=== PATIENT | female | born 1990 | race Caucasian/White ===

== ENCOUNTER 2018-05-19 10:10 | Inpatient (IN) | payer BC ==
[2018-05-19] MEDS ORDERED: LIDOCAINE 1% (MPF) 30 ML INJ INJ (10:30)
[2018-05-19] MEDS ORDERED: CARBOPROST 250 MCG INJ IM ×2 (10:30→23:30)
[2018-05-19] MEDS ORDERED: METHYLERGONOVINE 0.2 MG INJ IM ×2 (10:30→23:30)
[2018-05-19] MEDS ORDERED: AMPICILLIN 2 GM/NS (PMX) 100 ML IV (10:30)
[2018-05-19] MEDS ORDERED: OXYTOCIN 30 UNITS/LR 500 ML IV ×2 (10:30→23:30)
[2018-05-19] MEDS ORDERED: IBUPROFEN 600 MG TAB PO (10:30)
[2018-05-19] MEDS ORDERED: BUTORPHANOL 2 MG INJ IV (10:30)
[2018-05-19] MEDS ORDERED: MISOPROSTOL 200 MCG TAB PR ×2 (10:30→23:30)
[2018-05-19] MEDS ORDERED: BUTORPHANOL 1 MG INJ IV (10:30)
[2018-05-19] MEDS: LACTATED RINGER'S 1,000 ML IV ×4 (11:11→18:32)
[2018-05-19 11:16] LABS: ADD MAN DIFF? NO
[2018-05-19 11:19] LABS: BASOPHIL # 0.1 10^3/ul (0.0-0.1); BASOPHILS % 0.5 % (0.0-2.0); EOSINOPHILS # 0.1 10^3/ul (0.0-0.5); EOSINOPHILS % 0.5 % (0.0-7.0); HEMATOCRIT 34.1 % (37.0-47.0); HEMOGLOBIN 11.5 g/dl (12.0-16.0); LYMPHOCYTES # 1.4 10^3/ul (0.8-2.9); LYMPHOCYTES % 13.1 % (15.0-51.0); MEAN CORPUSCULAR HEMOGLOBIN 30.7 pg (29.0-33.0); MEAN CORPUSCULAR HGB CONC 33.7 g/dl (32.0-37.0); MEAN CORPUSCULAR VOLUME 90.9 fl (82.0-101.0); MEAN PLATELET VOLUME 11.3 fl (7.4-10.4); MONOCYTE # 0.9 10^3/ul (0.3-0.9); MONOCYTES % 8.8 % (0.0-11.0); NEUTROPHILS % 76.3 % (39.0-77.0); PLATELET COUNT 197 10^3/UL (140-415); RED BLOOD COUNT 3.75 10^6/ul (4.20-5.40); RED CELL DISTRIBUTION WIDTH 12.6 % (11.5-14.5)
[2018-05-19 11:19] LABS: WHITE BLOOD COUNT 10.5 10^3/ul (4.8-10.8)
[2018-05-19 11:39] LABS: INR 0.86; PARTIAL THROMBOPLASTIN TIME 24.5 Sec (23.0-35.0); PROTIME 11.8 Sec (11.9-14.9); PT RATIO 0.9
[2018-05-19 12:27] LABS: HEPATITIS B SURFACE ANTIGEN NEGATIVE (NEGATIVE)
[2018-05-19] MEDS: SALINE 0.65% 45 ML NAS SPRAY NASAL (12:52)
[2018-05-19 13:41] LABS: HIV 1&2 ANTIBODY NEGATIVE (NEGATIVE)
[2018-05-19] MEDS ORDERED: DIPHENHYDRAMINE 50 MG INJ IV (14:30)
[2018-05-19] MEDS ORDERED: NALOXONE (0.4 MG/ML) INJ IV (14:30)
[2018-05-19] MEDS ORDERED: AMPICILLIN 1 GM/NS (PMX) 50 ML IV (14:30)
[2018-05-19] MEDS ORDERED: ONDANSETRON 4 MG INJ IV (14:30)
[2018-05-19 15:17] LABS: RAPID PLASMA REAGIN NONREACTIVE (NR)
[2018-05-19] MEDS ORDERED: MINERAL OIL LIGHT 10 ML VIAL (16:36)
[2018-05-19] MEDS ORDERED: MINERAL OIL LIGHT 10 ML VIAL TOP (17:00)
[2018-05-19] MEDS: FENTAnyl 2MCG/ML-ROPIV 0.2% 100 ML BAG EPI (20:18)
[2018-05-19] MEDS: ACETAMINOPHEN 500 MG TAB PO (22:03)
[2018-05-19] MEDS ORDERED: GENTAMICIN 120 MG/NS (PMX) 100 ML IVPB (22:12)
[2018-05-19] MEDS: GENTAMICIN 120 MG/NS (PMX) 100 ML IVPB (22:15)
[2018-05-19] MEDS: CLINDAMYCIN 900 MG/D5W (PMX) 50 ML IVPB (23:34)
[2018-05-19] MEDS ORDERED: OXYTOCIN 10 UNIT INJ (23:57)
[2018-05-19] MEDS ORDERED: morphine SULFATE/PF (10 MG/10 ML) INJ (23:57)
[2018-05-20] MEDS ORDERED: OXYTOCIN 10 UNIT INJ (00:02)
[2018-05-20] MEDS ORDERED: METHYLERGONOVINE 0.2 MG INJ IM (01:00)
[2018-05-20] MEDS ORDERED: MISOPROSTOL 200 MCG TAB PR (01:00)
[2018-05-20] MEDS ORDERED: ONDANSETRON 4 MG INJ IV ×2 (01:00→15:30)
[2018-05-20] MEDS ORDERED: NALOXONE (0.4 MG/ML) INJ IV (01:00)
[2018-05-20] MEDS ORDERED: morphine 4 MG/ML VIAL IV (01:00)
[2018-05-20] MEDS ORDERED: LANOLIN HPA 1 PKT TOP (01:00)
[2018-05-20] MEDS ORDERED: DIPHENHYDRAMINE 50 MG INJ IV (01:00)
[2018-05-20] MEDS ORDERED: NACL 0.9% 3 ML SYG IV (01:00)
[2018-05-20] MEDS ORDERED: CARBOPROST 250 MCG INJ IM (01:00)
[2018-05-20] MEDS ORDERED: OXYTOCIN 30 UNITS/LR 500 ML IV (01:00)
[2018-05-20] MEDS: GENTAMICIN 90 MG in SOD CHLORIDE 0.9% 100 ML IV ×3 (02:23→17:58)
[2018-05-20] MEDS: OXYTOCIN 30 UNITS/LR 500 ML IV ×4 (02:48→15:14)
[2018-05-20] MEDS: KETOROLAC 30 MG INJ IV ×2 (02:52→17:16)
[2018-05-20] MEDS: AMPICILLIN 2 GM/NS (PMX) 100 ML IV ×4 (05:53→23:57)
[2018-05-20] MEDS: CLINDAMYCIN 900 MG/D5W (PMX) 50 ML IVPB (05:54)
[2018-05-20] MEDS ORDERED: LIDOCAINE 1.5%/EPI MPF (SDV) 30 ML VIAL (07:00)
[2018-05-20] MEDS ORDERED: OXYTOCIN 30 UNITS/LR 500 ML BAG IV (07:00)
[2018-05-20] MEDS: SENNA/DOCUSATE NA (8.6MG/50MG) TAB PO ×2 (08:25→21:00)
[2018-05-20] MEDS: LACTATED RINGER'S 1,000 ML IV (10:13)
[2018-05-20] MEDS ORDERED: VITAMIN A & D 5 GM OINT PACKET TOP (21:53)
[2018-05-21] MEDS: GENTAMICIN 90 MG in SOD CHLORIDE 0.9% 100 ML IV (01:00)
[2018-05-21] MEDS ORDERED: IBUPROFEN 600 MG TAB (01:05)
[2018-05-21] MEDS: IBUPROFEN 600 MG TAB PO ×4 (01:05→17:31)
[2018-05-21] MEDS: OXYTOCIN 30 UNITS/LR 500 ML IV (01:14)
[2018-05-21] MEDS: AMPICILLIN 2 GM/NS (PMX) 100 ML IV (05:54)
[2018-05-21 08:30] LABS: ADD MAN DIFF? NO
[2018-05-21 08:42] LABS: BASOPHIL # 0.1 10^3/ul (0.0-0.1); BASOPHILS % 0.3 % (0.0-2.0); EOSINOPHILS % 0.2 % (0.0-7.0); HEMATOCRIT 28.5 % (37.0-47.0); HEMOGLOBIN 9.3 g/dl (12.0-16.0); LYMPHOCYTES # 1.3 10^3/ul (0.8-2.9); LYMPHOCYTES % 7.7 % (15.0-51.0); MEAN CORPUSCULAR HEMOGLOBIN 30.7 pg (29.0-33.0); MEAN CORPUSCULAR HGB CONC 32.6 g/dl (32.0-37.0); MEAN CORPUSCULAR VOLUME 94.1 fl (82.0-101.0); MEAN PLATELET VOLUME 11.1 fl (7.4-10.4); MONOCYTE # 1.5 10^3/ul (0.3-0.9); MONOCYTES % 8.6 % (0.0-11.0); NEUTROPHIL # 14.2 10^3/ul (1.6-7.5); NEUTROPHILS % 82.2 % (39.0-77.0); PLATELET COUNT 179 10^3/UL (140-415); RED BLOOD COUNT 3.03 10^6/ul (4.20-5.40); RED CELL DISTRIBUTION WIDTH 13.1 % (11.5-14.5)
[2018-05-21 08:42] LABS: WHITE BLOOD COUNT 17.2 10^3/ul (4.8-10.8)
[2018-05-21] MEDS: SENNA/DOCUSATE NA (8.6MG/50MG) TAB PO ×2 (09:00→20:35)
[2018-05-21 09:02] LABS: ANION GAP 4 (5-13); BLOOD UREA NITROGEN 9 mg/dl (7-20); CALCIUM 9.1 mg/dl (8.4-10.2); CARBON DIOXIDE 28 mmol/L (21-31); CHLORIDE 104 mmol/L (97-110); CREATININE 0.69 mg/dl (0.44-1.00); Estimated GFR > 60 mL/min (>60); GLUCOSE 98 mg/dl (70-220); POTASSIUM 4.3 mmol/L (3.5-5.1); SODIUM 136 mmol/L (135-144)
[2018-05-21] MEDS: FERROUS GLUCONATE (EC) 325 MG TAB PO (20:35)
[2018-05-22] MEDS: IBUPROFEN 600 MG TAB PO ×4 (00:15→17:27)
[2018-05-22 07:23] LABS: ADD MAN DIFF? NO
[2018-05-22 07:33] LABS: BASOPHIL # 0.1 10^3/ul (0.0-0.1); BASOPHILS % 0.5 % (0.0-2.0); EOSINOPHILS # 0.1 10^3/ul (0.0-0.5); EOSINOPHILS % 1.1 % (0.0-7.0); HEMATOCRIT 27.6 % (37.0-47.0); HEMOGLOBIN 9.1 g/dl (12.0-16.0); LYMPHOCYTES % 15.8 % (15.0-51.0); MEAN CORPUSCULAR HEMOGLOBIN 31.1 pg (29.0-33.0); MEAN CORPUSCULAR VOLUME 94.2 fl (82.0-101.0); MONOCYTES % 8.1 % (0.0-11.0); NEUTROPHIL # 9.4 10^3/ul (1.6-7.5); NEUTROPHILS % 73.7 % (39.0-77.0); PLATELET COUNT 204 10^3/UL (140-415); RED BLOOD COUNT 2.93 10^6/ul (4.20-5.40); RED CELL DISTRIBUTION WIDTH 12.8 % (11.5-14.5)
[2018-05-22 07:33] LABS: WHITE BLOOD COUNT 12.8 10^3/ul (4.8-10.8)
[2018-05-22] MEDS: SENNA/DOCUSATE NA (8.6MG/50MG) TAB PO ×2 (08:59→21:58)
[2018-05-22] MEDS: FERROUS GLUCONATE (EC) 325 MG TAB PO ×2 (08:59→21:58)
[2018-05-23] MEDS: IBUPROFEN 600 MG TAB PO ×3 (00:06→12:00)
[2018-05-23] MEDS: FERROUS GLUCONATE (EC) 325 MG TAB PO (08:30)
[2018-05-23] MEDS: SENNA/DOCUSATE NA (8.6MG/50MG) TAB PO (08:31)
[2018-05-23 11:51] LABS: RUBELLA ANTIBODY - IGM <20.00 AU/mL
== END 2018-05-23 14:50 | disposition home or self-care (01) | DRG 786 ==
LOC: L-D 10:10 → PP1 05-20 03:40
PROC: 10D00Z1 Extraction of Products of Conception, Low, Open Approach (ICD-10-PCS; principal; 2018-05-20)
DX: O62.1 Secondary uterine inertia (principal); O41.1230 Chorioamnionitis, third trimester, not applicable or unspecified; Z3A.39 39 weeks gestation of pregnancy; Z37.0 Single live birth
CPT/HCPCS: 62319; 76815; 80048; 85025; 85610; 85730; 86592; 86703; 86762; 86850; 86900; 86901; 87340; 99464